=== PATIENT | female | born 1965 | race Caucasian/White ===

== ENCOUNTER 2016-09-11 06:59 | Day surgery (SDC) | payer OTHER ==
[2016-08-28 14:00] VITALS: BMI 22.2
[2016-09-11] MEDS ORDERED: ONDANSETRON 4 MG/2 ML VIAL ONE ×2 (08:34→08:46)
[2016-09-11] MEDS ORDERED: DEXAMETHASONE SOD PHOSPHATE 4 MG/1 ML VIAL ONE ×2 (08:34→08:46)
[2016-09-11] MEDS ORDERED: MIDAZOLAM HCL 2 MG/2 ML SINGLE DOSE VIAL ONE (08:35)
[2016-09-11] MEDS ORDERED: PROPOFOL 20 ML ONE (08:35)
[2016-09-11] MEDS ORDERED: BUPIVACAINE HCL/PF 0.25% (2.5MG/ML) 10 ML VIAL IJ ONE (09:48)
[2016-09-11] MEDS ORDERED: OXYCODONE/APAP 5/325MG COMBO TABLET ONE (10:44)
[2016-09-11] MEDS ORDERED: ONDANSETRON 4 MG/2 ML VIAL IVPUSH PRN (11:12)
[2016-09-11 11:15] VITALS: TEMP 98.1
[2016-09-11] MEDS ORDERED: LACTATED RINGERS SOLUTION 1,000 ML IV SCH (11:15)
[2016-09-11 11:19] VITALS: BP 111/73; PULSE 68
[2016-09-11] MEDS ORDERED: oxyCODONE HCL 5 MG TABLET PO PRN (11:28)
--- NOTE | 2016-09-12 09:24 | OP ---
DATE OF OPERATION: 09/11/2016 PREOPERATIVE DIAGNOSIS: Left carpal tunnel syndrome. POSTOPERATIVE DIAGNOSIS: Left carpal tunnel syndrome. OPERATIVE PROCEDURE: Left endoscopic carpal tunnel release. SURGEON: Dwight Ardon MD ANESTHESIA: General. COMPLICATIONS: None. ESTIMATED BLOOD LOSS: Minimal. INDICATIONS FOR PROCEDURE: The patient is a 51-year-old female with the above findings, indicated for operative treatment. The risks, benefits, and alternatives were discussed with the patient at length, and proper informed consent was obtained. PROCEDURE: After proper identification of the patient and the correct operative site, the patient was brought to the operating room and placed supine on the operating room table. All bony prominences were well padded. General anesthesia was provided by the anesthesiologist. Superficial landmarks were drawn on the skin, and the left upper extremity was prepped and draped in the usual sterile fashion. Well-padded tourniquet was placed with a sterile prep. Esmarch bandage used to exsanguinate the left upper extremity. Tourniquet inflated to 250 mmHg. A transverse incision was made over the proximal wrist crease just ulnar to the palmaris longus tendon. Incision was taken sharply through the skin with blunt and sharp dissection of subcutaneous tissues. A full-thickness distally based flap with antebrachial fascia was developed, thus allowing me to enter the carpal canal. An elevator was used to free any soft tissue from the undersurface of the transverse carpal ligament, and the hamate-finder dilator was used to prepare the canal. The [employer] Endoscopic Carpal Tunnel Release System was then used. It was inserted to the distal aspect of the transverse carpal ligament, which was confirmed both visually as well as palpably. At all times throughout the procedure, excellent visualization was obtained, and at no time was any soft tissue allowed to interpose between the blade and the undersurface of the transverse carpal ligament. The blade was deployed, and the transverse carpal ligament was divided in its entirety. Distal 4 cm of antebrachial fascia were divided under direct visualization using the same incision with a mini-open technique. This provided complete release of the median nerve at the wrist. Wound was irrigated with saline and repaired with a 4-0 Monocryl suture. Steri-Strips and sterile dressings were applied. Marcaine was used for postoperative analgesia. The patient tolerated the procedure well. DWIGHT ARDON M.D. [id number]
== END 2016-09-11 11:15 | disposition home or self-care (01) ==
LOC: FASU 06:59
PROVIDERS: ATTEND Orthopaedic Surgery Hand Surgery
PROC: 01N54ZZ Release Median Nerve, Percutaneous Endoscopic Approach (ICD-10-PCS; principal; 2016-09-11 09:00)
DX: G56.02 Carpal tunnel syndrome, left upper limb (principal)
CPT/HCPCS: 94760